=== PATIENT | male | born 1995 | race African-American/Black ===

== ENCOUNTER 2020-12-13 01:19 | Emergency (ER) | payer MEDICAID ==
[~2020-12-13] VITALS: Ht 170.2 cm; Wt 69.0 kg
[2020-12-13] MEDS ORDERED: BACITRACIN ZINC OINT UDPKT TOP ONE (02:45)
[2020-12-13] MEDS ORDERED: LIDOCAINE HCL/EPINEPHRINE 1%-EPI 1:100,000 10 ML VIAL IJ ONE (02:45)
[2020-12-13] MEDS ORDERED: HYDROCODONE/ACETAMINOPHEN 5/325MG TABLET PO ONE (02:45)
[2020-12-13] MEDS ORDERED: LIDOCAINE HCL/EPINEPHRINE 1%-EPI 1:100,000 20 ML VIAL INFIL NR (03:00)
[2020-12-13 05:30] VITALS: BP 107/60
== END 2020-12-13 06:10 | disposition home or self-care (01) ==
LOC: ER 01:19
DX: S01.81XA Laceration without foreign body of other part of head, initial encounter (principal); X58.XXXA Exposure to other specified factors, initial encounter; Y93.89 Activity, other specified; Y92.89 Other specified places as the place of occurrence of the external cause; Y99.8 Other external cause status
CPT/HCPCS: 12014; 70450; 93005; 99284; J3490